=== PATIENT | female | born 1995 | race Caucasian/White ===

== ENCOUNTER → 2022-06-15 | Outpatient (CLI) | payer OTHER ==
[~2022-06-15] MED LIST: IBU600 MG PO; PRENATAL TABLET PO
--- NOTE | 2022-06-15 12:18 | NUR ---
Pt, Eugenie Manzo, presents for outpatient consult with 5+ week old baby girl, Tianna Manzo, for a evaluation. Tianna has not been gaining weight in the first month of life and was referred by Dr. Vidal and Clau Major NP. Tianna was born on [birth year] by and weighed 6# 6.3oz (2900 gms). Pt reports Tianna weighed 6# 1oz on 06/08/22 and she was advised to bottle feed 2oz formula q 2 hours. Three days later she was reweighed 6# 13oz. These weights were recorded at the [facility]. Pt has also been pumping since the 06/08/22 appointment and reports collecting about 4oz per 24 hours at this time. She denies feeling her milk "came in" in the first week after , or any known medical hx that may impact breast milk production. Breasts appear well developed but palpate soft. Today Tianna weighs 7# 0.3oz (3182 gms). Pt states her voids and stools have increased significantly since the supplementation began. Pt places Tianna to breast, allowing her to grasp the nipple without assistance to get a deeper latch. LC assists and instructs pt on compression of areola to get a full mouth of breast tissue. She is then advised on breast compression during the feeding to help express milk to Tianna. After bilaterally Tianna had a gain of 24 gms (0.9oz). Because pt has not pumped since 0600 this volume is higher than if she had emptied on a 3 hour schedule. LC does not feel upper lip frenulum is restrictive for a good latch. Pt agrees to try Supplemental Nursing System (SNS) to see if BF and supplementation could be combined. Baby not receptive to feeding tube but eventualy she nurses and takes 26ml of formula. She does not demonstrate additional gain of breastmilk per the scale. Baby is still rooting so is provided another 25ml by bottle. Impression: Very low milk supply, shallow latching. Plan: Continue 3-step feeding plan (Breast, supplement, pump). Increase supplement volume upto 3oz as Tianna tolerates. Pt will consider herbal supplements and try to secure a double electric breastpump that will allow more effective removal of milk and stimulation to increase milk supply. F/U: Next week by appt or walk-in clinic. Pt to notify LC which she prefers. As scheduled with [facility].
== END ==
LOC: LAC 11:46
DX: Z39.1 Encounter for care and examination of lactating mother (principal)

== ENCOUNTER 2023-05-04 08:42 | Inpatient (IN) | payer OTHER ==
[2023-05-04] VITALS (13 sets, daily range): BP systolic 106–143; BP diastolic 60–84; PULSE 59–97; TEMP 98.1–98.7
[~2023-05-04] VITALS: Ht 162.6 cm; Wt 102.2 kg
--- NOTE | 2023-05-04 08:50 | NUR ---
PT ORIENTED TO ROOM AND CHANGED INTO GOWN. PT PLACED ON MONITORS. FHT CATAGORY 1, VS WNL. PT IS FEELING REGULAR MOVEMENT. PT IS HERE TODAY BECAUSE SHE BELIEVES SHE SROM'D AT 0700 AND IS LEAKING FLUID. NITRAZINE TEST OF FLUID WAS POSITIVE. FLUID THEN LEAKED ALL OVER THE BED AND PT. DR MILLARD WAS NOTIFIED.
[2023-05-04] MEDS ORDERED: NEPHRON FA TAB1 EACH PO (10:03)
[2023-05-04] MEDS ORDERED: AIRBORNE ELDER1 EACH PO (10:04)
[2023-05-04 11:03] LABS: BASO % 0.2 % (0.0-2.0); EOS % 0.3 % (0.0-4.0); GRAN # 7.5 K/mm3 (1.4-6.5); LYMPH # 1.4 K/mm3 (1.2-3.4); LYMPH % 14.8 % (20.0-51.0); MEAN CELL VOLUME 92 fl (80.0-100.0); MEAN CORPUSCULAR HEMOGLOBIN 31 pg (27-31); MEAN CORPUSCULAR HGB CONC 34 g/dl (33.0-37.0); MEAN PLATELET VOLUME 12.4 fl (7.4-10.4); MONO # 0.6 K/mm3 (0.1-0.6); MONO % 6.3 % (1.7-9.3); PLATELET COUNT 215 K/mm3 (130-400); RED BLOOD COUNT 3.89 M/mm3 (4.10-5.30); REDCELL DISTRIBUTION WIDTH-CV 13.9 % (11.5-14.5)
[2023-05-04 11:16] LABS: HEMATOCRIT 35.6 % (37.0-47.0)
--- NOTE | 2023-05-04 11:28 | NUR ---
PT HAS ASKED FOR INTERMITTENT MONITORING IN HER PLAN, WELL , VERBALLY. FHT FOR 20 MINUTES THEN PT AMBULATES AROUND THE UNIT OR BOUNCES ON THE BALL. PT HAS ALSO REQUESTED WARM WATER FOR LABOR.
--- NOTE | 2023-05-04 15:15 | NUR ---
1448- CALLED DR MILLARD, SAID SHE WOULD CALL RIGHT BACK. 1449- DR MILLARD CALLED BACK. UPDATED DR MILLARD, DEEP . DR MILLARD SAID THAT SHE HAD 3 PT'S LEFT AT THE OFFICE AND WOULD BE OVER. 1455- CALLED DR MILLARD TO REPORT PT FEELING PUSHY. SVE PT STILL HAD ABOUT 2 CM OF ANTERIOR CERVIX LEFT. DR MILLARD SAID SHE WOULD HEAD OVER. 1508- CALLED DR MILLARD TO REPORT PT FELT LIKE SHE WAS PUSHING AND COULDN'T STOP IT. DR MILLARD WAS IN THE PARKING LOT.
--- NOTE | 2023-05-04 15:15 | NUR ---
1508- PT COMPLETE AND FEELING LIKE SHE WAS PUSHING. CALLED DR MILLARD. WAS IN THE PARKING LOT ON HER WAY UP. 1511- PT BEGAN PUSHING. 1515- SPONTANEOUS VAGINAL DELIVERY OF A VIABLE BABY GIRL BY DR MILLARD. NUCHAL X2. BABY WAS PLACED ON MOMS CHEST AND STIMULATED. CARE OF TAKEN OVER BY NURSERY NURSE JIMMIE. CORD WAS CUT BY FOB. BABY WAS THEN PLACED SKIN TO SKIN WITH MOM. 1521- SPONTANEOUS DELIVERY OF THE PLACENTA BY DR MILLARD. PLACENTA WAS SENT TO PATHOLOGY DUE TO IUGR. DR MILLARD THEN REPAIRED A SECOND DEGREE VAGINAL LACERATION. EBL 300. PT REPOSITIONED. BLEEDING MINIMAL. VS WNL.
--- NOTE | 2023-05-04 19:30 | NUR ---
Up to bathroom with steady gait. Voids without difficulty, performs own pericare. pads, pantied, clean gown on. Ambulates to room.
[2023-05-05 07:15] VITALS: BP 117/71; PULSE 81; TEMP 97.4
[2023-05-05] MEDS ORDERED: IBU800 M1 PO (08:20)
[2023-05-05 12:20] VITALS: BP 115/74; PULSE 77; TEMP 97.9
== END 2023-05-05 17:49 | disposition home or self-care (01) | DRG 807 ==
LOC: LDRO 08:42 → LDR 09:16 → OB 20:00
PROVIDERS: ADMIT Student in an Organized Health Care Education/Training Program
PROC: 10E0XZZ Delivery of Products of Conception, External Approach (ICD-10-PCS; principal; 2023-05-04)
PROC: 0KQM0ZZ Repair Perineum Muscle, Open Approach (ICD-10-PCS; 2023-05-04)
DX: O36.5930 Maternal care for other known or suspected poor fetal growth, third trimester, not applicable or unspecified (principal); Z37.0 Single live birth; Z3A.39 39 weeks gestation of pregnancy; O26.893 Other specified pregnancy related conditions, third trimester; O69.81X0 Labor and delivery complicated by cord around neck, without compression, not applicable or unspecified; O99.214 Obesity complicating childbirth; Z67.11 Type A blood, Rh negative; O70.1 Second degree perineal laceration during delivery
CPT/HCPCS: J2210; J2590; J2791; J7120

== ENCOUNTER → 2023-05-22 | Outpatient (CLI) | payer OTHER ==
[~2023-05-22] MED LIST changes: +AIRBORNE ELDER1 EACH PO; +IBU800 M1 PO; +NEPHRON FA TAB1 EACH PO
--- NOTE | 2023-05-22 14:37 | NUR ---
Pt, Eugenie Manzo, presents for outpatient consult with 18 day old baby girl, Marianela Manzo. Pt requested appointment for breastmilk and feeding evaluation. Marianela was born on [birth year] and weighed 6# 0.3oz (2730 gms). Her first day of life weight was 6# 5oz (2875 gms) so there is some question as to what her weight actually was. Pt states Marianela was seen at Dr. Mcfadden's office on 05/09/23 and weighed 6# 2oz. Pt had Marianela weighed at [facility] on 05/20/23 and she weighed 6#4.5oz. Pt started pumping and supplementing EBM on 05/19/23, providing 0.5oz to 2oz after breastfeedings. Pt states Marianela has been staying more awake for feedings, waking herself for feedings, and having larger voids and stools. Today Marianela weighs 6#7.3oz (2928 gms). She nurses well and has a gain of 24 gms (0.8oz) p . Pt then pumps and has an additional 18ml to provide by bottle. Total intake is 42 ml or 1.44oz. Pt advised to supplement 1-1.5oz EBM or formula p breastfeedings, based on 8 feedings per day. If she gets Marianela to eat a little more frequently (10 per day) she can reduce the supplement volume per feeding to 0.75-1.25oz. She will continue pumping p breastfeedings to work on milk supply and she is taking herbal supplements. Pt will follow up with this windows consultant in one week. Questions invited and answered. After Marianela
== END ==
LOC: LAC 09:07
DX: Z39.1 Encounter for care and examination of lactating mother (principal); Z71.89 Other specified counseling